=== PATIENT | female | born 1985 | race Caucasian/White ===

== ENCOUNTER 2017-10-18 15:40 | Emergency (ER) | payer OTHER, SELFPAY | END 2017-10-18 16:22 | disposition home or self-care (01) | LOC: ERS 15:40 | DX: N63.0 Unspecified lump in unspecified breast (principal); F41.9 Anxiety disorder, unspecified | CPT/HCPCS: 99283 ==

== ENCOUNTER 2017-12-12 20:28 | Emergency (ER) | payer SELFPAY ==
--- NOTE | 2017-12-12 21:48 | RAD ---
LEFT HAND THREE VIEWS: 12/12/17 HISTORY: Left hand injury. FINDINGS: Impacted fracture of the volar portion of the head of the proximal phalanx middle finger with minimal volar displacement. No significant intra-articular distraction. Surrounding soft tissue swelling. IMPRESSION: Intra-articular fracture proximal phalanx left middle finger. POS: [facility]
[2017-12-12] MEDS ORDERED: HYDROcodone/Acetaminophen 10/325 mg Tablet ONE (22:32)
== END 2017-12-12 22:50 | disposition home or self-care (01) ==
LOC: ERS 20:28
DX: S62.623A Displaced fracture of middle phalanx of left middle finger, initial encounter for closed fracture (principal); M24.442 Recurrent dislocation, left hand; F41.9 Anxiety disorder, unspecified; W55.32XA Struck by other hoof stock, initial encounter
CPT/HCPCS: Q4049

== ENCOUNTER 2022-12-24 18:27 | Inpatient (IN) | payer OTHER ==
[2022-12-24] MEDS ORDERED: Ketorolac Tromethamine 30 MG/ML VIAL ONE (19:07)
[2022-12-24] MEDS ORDERED: cefTRIAXone (ROCEPHIN) 2 GM VIAL ONE (19:07)
[2022-12-24 19:08] LABS: #Monocytes 1.3 thou/uL (0.11-0.59); #Neutrophils 9.9 thou/uL (1.40-6.50); %Basophils 0.2 % (0.0-1.0); %Eosinophils 0.1 % (0.0-10.0); %Lymphocytes 11.3 % (21.0-51.0); %Monocytes 10.3 % (0.0-10.0); %Neutrophils 77.6 % (42.0-75.0); Hematocrit 34.1 % (36.0-47.0); Mean Corpuscular HGB CONC 35.2 g/dL (32.0-36.0); Mean Corpuscular Hemoglobin 31.6 pg (27.0-31.0); Mean Corpuscular Volume 89.7 fl (78.0-98.0); Mean Platelet Volume 9.8 fL (7.4-10.4); Platelet Count 200 10x3/uL (130-400); RBC Distribution Width 11.3 % (11.5-14.5); White Blood Cell (WBC) Count 12.7 10x3/uL (4.8-10.8)
[2022-12-24] MEDS ORDERED: Sodium Chloride 0.9% 100 ML ONE ×2 (19:08→22:22)
[2022-12-24 19:17] LABS: Bacteria/HPF 2+ HPF (None Seen); Bilirubin Negative (Negative); Blood, Urine 1+ (Negative); CAUTI Indications for Culture Alt mental st,lethar; Clarity Turbid (Clear); Glucose, Urine (Dipstick) Normal (Negative); Ketone, Urine Negative (Negative); Leukocyte 500 Leu/uL (Negative); Nitrite Negative (Negative); Protein, Urine (Dipstick) 50 mg/dL (Neg-Trace); Renal Epithelial 0-3 HPF (None Seen); Specific Gravity, Urine 1.022 (1.002-1.036); WBC/HPF Greater than 50 HPF (0-3); pH, Urine 5.5 (5.0-9.0)
[2022-12-24 19:23] LABS: Transitional Epithelial 0-3 HPF (None Seen)
[2022-12-24 19:24] LABS: Urine Culture Reflex Yes Yes
[2022-12-24 19:32] LABS: ALT (SGPT) 45 U/L (8-55); AST (SGOT) 32 U/L (5-34); Albumin 3.6 g/dL (3.5-5.0); Alkaline Phosphatase 66 U/L (40-110); Anion Gap 11 mmol/L (10-20); BUN (Urea Nitrogen) 4 mg/dL (7.0-18.7); Bilirubin, Total 0.6 mg/dL (0.2-1.2); Calc. Creatinine Clearance 0 mL/min (70-130); Calcium 7.9 mg/dL (7.8-10.44); Carbon Dioxide 19 mmol/L (22-29); Chloride 107 mmol/L (98-107); Estimated GFR 116; Globulin 2.2 g/dL (2.4-3.5); Glucose 114 mg/dL (70-105); Potassium 3.4 mmol/L (3.5-5.1); Protein, Total 5.8 g/dL (6.0-8.3); Sodium 134 mmol/L (136-145)
[2022-12-24] MEDS ORDERED: Morphine 4 MG/ML VIAL ONE (20:12)
[2022-12-24] MEDS ORDERED: Ondansetron PF 4 MG/2 ML Vial ONE (20:12)
[2022-12-24] MEDS ORDERED: Iopamidol 0 ML ONE (21:59)
[2022-12-24] MEDS ORDERED: Midazolam HCl 2 mg/2 ml Vial ONE ×2 (22:12→22:13)
[2022-12-24] MEDS ORDERED: fentaNYL 50 mcg/mL 1 mL Vial ONE (22:13)
[2022-12-24] MEDS ORDERED: Piperacillin/Tazobactam 3.375 GM VIAL ONE (22:21)
[2022-12-24] MEDS ORDERED: Acetaminophen 325 MG TAB PO PRN (22:28)
[2022-12-24] MEDS ORDERED: Acetaminophen 650 MG Suppository PR PRN (22:28)
[2022-12-24] MEDS ORDERED: Ondansetron PF 4 MG/2 ML Vial IVP PRN (22:28)
[2022-12-24] MEDS ORDERED: Ondansetron ODT 4 MG TAB PO PRN (22:28)
[2022-12-24] MEDS ORDERED: PHENYLEPHRINE-NS 100 MCG/ML 10 ML SYRINGE ONE (22:41)
[2022-12-24] MEDS ORDERED: PROPOFOL 200 MG/20 ML VIAL ONE (22:41)
[2022-12-24] MEDS ORDERED: Lidocaine 1% PF 5 ML VIAL ONE (22:41)
[2022-12-24] MEDS ORDERED: Bisacodyl 10 MG SUPP PR PRN (22:46)
[2022-12-24] MEDS ORDERED: Oxybutynin 5 MG TAB PO PRN (22:46)
[2022-12-24] MEDS ORDERED: diphenhydrAMINE 50 MG/ML VIAL IVP PRN (22:46)
[2022-12-24] MEDS ORDERED: Mag-Al 1200 mg/1200 mg/30 ML UDCUP PO PRN (22:46)
[2022-12-24] MEDS ORDERED: Promethazine HCl 25 MG/ML VIAL IM PRN (23:13)
[2022-12-24] MEDS ORDERED: Ondansetron HCl/PF 4 MG/2 ML Vial IVP PRN (23:13)
[2022-12-25] MEDS: Morphine 2 MG/ML VIAL SLOW IVP PRN ×2 (00:25→21:18)
[2022-12-25] MEDS: Sodium Chloride 0.9% 1,000 ML IV SCH ×3 (00:26→15:10)
[2022-12-25 00:31] VITALS: BMI 25.5
[2022-12-25] MEDS: HYDROcodone/Acetaminophen 5/325 mg Tablet PO PRN ×4 (00:59→14:28)
[2022-12-25] MEDS: Piperacillin/Tazobactam 3.375 GM in Sodium Chloride 0.9% 100 ML IVPB SCH ×3 (01:58→18:06)
[2022-12-25 06:32] LABS: #Eosinphils 0.1 thou/uL (0.0-0.7); #Monocytes 2.2 thou/uL (0.11-0.59); #Neutrophils 7.5 thou/uL (1.40-6.50); %Basophils 0.2 % (0.0-1.0); %Eosinophils 0.4 % (0.0-10.0); %Lymphocytes 18.2 % (21.0-51.0); %Monocytes 18.2 % (0.0-10.0); %Neutrophils 62.5 % (42.0-75.0); Hemoglobin 11.8 g/dL (12.0-16.0); Mean Corpuscular HGB CONC 33.7 g/dL (32.0-36.0); Mean Platelet Volume 9.8 fL (7.4-10.4); Platelet Count 175 10x3/uL (130-400); RBC Distribution Width 11.6 % (11.5-14.5); Red Blood Cell (RBC) Count 3.69 mill/uL (4.20-5.40)
[2022-12-25 06:33] LABS: Mean Corpuscular Volume 94.9 fl (78.0-98.0)
[2022-12-25 06:52] LABS: Anion Gap 10 mmol/L (10-20); BUN (Urea Nitrogen) 6 mg/dL (7.0-18.7); Calc. Creatinine Clearance 138 mL/min (70-130); Calcium 7.9 mg/dL (7.8-10.44); Carbon Dioxide 20 mmol/L (22-29); Chloride 111 mmol/L (98-107); Estimated GFR 114; Glucose 90 mg/dL (70-105); Potassium 3.4 mmol/L (3.5-5.1); Sodium 138 mmol/L (136-145)
[2022-12-25] MEDS ORDERED: Electrolyte Replacement Protocol 1 EACH FS ONE (07:49)
[2022-12-25] MEDS ORDERED: Electrolyte Replacement Protocol FS PRN (08:00)
[2022-12-25] MEDS ORDERED: Potassium Chloride 20 MEQ in Premix 1 BAG IVPB SCH (08:00)
[2022-12-25] MEDS: Docusate 100 MG CAP PO SCH ×2 (08:35→21:00)
[2022-12-25] MEDS: Famotidine/PF 20 mg/2ml Vial SLOW IVP SCH ×2 (08:35→21:20)
[2022-12-25] MEDS ORDERED: Potassium Chloride 20 MEQ TAB PO SCH (09:15)
[2022-12-26] MEDS: HYDROcodone/Acetaminophen 5/325 mg Tablet PO PRN ×4 (01:27→22:01)
[2022-12-26] MEDS: Piperacillin/Tazobactam 3.375 GM in Sodium Chloride 0.9% 100 ML IVPB SCH ×3 (01:28→19:34)
[2022-12-26 05:47] LABS: #Eosinphils 0.1 thou/uL (0.0-0.7); #Monocytes 1.1 thou/uL (0.11-0.59); #Neutrophils 4.1 thou/uL (1.40-6.50); %Basophils 0.4 % (0.0-1.0); %Eosinophils 0.7 % (0.0-10.0); %Lymphocytes 25.3 % (21.0-51.0); %Monocytes 15.9 % (0.0-10.0); %Neutrophils 57.3 % (42.0-75.0); Hematocrit 31.6 % (36.0-47.0); Hemoglobin 10.8 g/dL (12.0-16.0); Mean Corpuscular HGB CONC 34.2 g/dL (32.0-36.0); Mean Corpuscular Hemoglobin 31.6 pg (27.0-31.0); Mean Corpuscular Volume 92.4 fl (78.0-98.0); Mean Platelet Volume 9.8 fL (7.4-10.4); Platelet Count 194 10x3/uL (130-400); RBC Distribution Width 11.5 % (11.5-14.5); Red Blood Cell (RBC) Count 3.42 mill/uL (4.20-5.40); White Blood Cell (WBC) Count 7.2 10x3/uL (4.8-10.8)
[2022-12-26 06:14] LABS: Anion Gap 11 mmol/L (10-20); BUN (Urea Nitrogen) 4 mg/dL (7.0-18.7); Calc. Creatinine Clearance 129 mL/min (70-130); Calcium 8.4 mg/dL (7.8-10.44); Carbon Dioxide 23 mmol/L (22-29); Chloride 107 mmol/L (98-107); Estimated GFR 105; Glucose 109 mg/dL (70-105); Potassium 3.8 mmol/L (3.5-5.1); Sodium 137 mmol/L (136-145)
[2022-12-26] MEDS: Sodium Chloride 0.9% 1,000 ML IV SCH ×3 (08:10→17:36)
[2022-12-26] MEDS: Docusate 100 MG CAP PO SCH ×2 (08:11→22:03)
[2022-12-26] MEDS: Famotidine/PF 20 mg/2ml Vial SLOW IVP SCH ×2 (09:09→22:03)
[2022-12-26] MEDS: Morphine 2 MG/ML VIAL SLOW IVP PRN (19:34)
[2022-12-27] MEDS: Sodium Chloride 0.9% 1,000 ML IV SCH ×2 (02:15→08:35)
[2022-12-27] MEDS: Piperacillin/Tazobactam 3.375 GM in Sodium Chloride 0.9% 100 ML IVPB SCH ×2 (02:16→10:03)
[2022-12-27] MEDS: Morphine 2 MG/ML VIAL SLOW IVP PRN (04:43)
[2022-12-27 07:46] VITALS: BP 111/77; TEMP 97.7
[2022-12-27] MEDS: Docusate 100 MG CAP PO SCH (08:32)
[2022-12-27] MEDS: HYDROcodone/Acetaminophen 5/325 mg Tablet PO PRN (08:32)
[2022-12-27] MEDS: Famotidine/PF 20 mg/2ml Vial SLOW IVP SCH (10:53)
[2022-12-28] MEDS ORDERED: FLU VACC QS2023-24(6MOS UP)/PF 60 MCG/0.5 ML SYRINGE IM ONE (09:00)
== END 2022-12-27 14:31 | disposition home or self-care (01) | DRG 854 ==
LOC: ERS 18:27 → SDC/OP 22:43 → CCU 23:00 → MSONC 12-25 14:06
PROVIDERS: ADMIT Student in an Organized Health Care Education/Training Program; ATTEND Internal Medicine
PROC: 0T738DZ Dilation of Right Kidney Pelvis with Intraluminal Device, Via Natural or Artificial Opening Endoscopic (ICD-10-PCS; principal; 2022-12-24)
PROC: 3E03329 Introduction of Other Anti-infective into Peripheral Vein, Percutaneous Approach (ICD-10-PCS; 2022-12-24)
DX: A41.51 Sepsis due to Escherichia coli [E. coli] (principal); E87.1 Hypo-osmolality and hyponatremia; N12 Tubulo-interstitial nephritis, not specified as acute or chronic; N13.2 Hydronephrosis with renal and ureteral calculous obstruction; M19.90 Unspecified osteoarthritis, unspecified site; F41.9 Anxiety disorder, unspecified; N32.89 Other specified disorders of bladder; F10.90 Alcohol use, unspecified, uncomplicated; R31.9 Hematuria, unspecified; E87.6 Hypokalemia; I95.9 Hypotension, unspecified; Z79.899 Other long term (current) drug therapy; Z98.890 Other specified postprocedural states; Z87.891 Personal history of nicotine dependence
CPT/HCPCS: 36415; 71045; 74176; 74420; 80048; 80053; 81001; 83605; 84702; 85025; 87040; 87077; 87086; 87186; 93005; C2617; J0696; J1650; J1885; J2250; J2270; J2272; J2405; J2543; J2704; J3010; J3480; J3490; J7050; Q9967; S0028

== ENCOUNTER 2023-01-10 06:18 | Day surgery (SDC) | payer SELFPAY ==
[2023-01-09 10:00] VITALS: BMI 23.5
[2023-01-10] MEDS ORDERED: Lidocaine 1% MPF 2 ML VIAL ONE (06:33)
[2023-01-10] MEDS ORDERED: cefTRIAXone (ROCEPHIN) 2 GM VIAL ONE (06:34)
[2023-01-10] MEDS ORDERED: Sodium Chloride 0.9% 100 ML ONE (06:34)
[2023-01-10] MEDS ORDERED: Midazolam HCl 2 mg/2 ml Vial ONE (06:54)
[2023-01-10] MEDS ORDERED: Fentanyl 250 MCG/5 ML VIAL ONE (06:55)
[2023-01-10] MEDS ORDERED: Ondansetron PF 4 MG/2 ML Vial ONE (07:07)
[2023-01-10] MEDS ORDERED: PROPOFOL 20 ML ONE (07:07)
[2023-01-10] MEDS ORDERED: Dexamethasone 4 mg/ml Vial ONE (07:07)
[2023-01-10] MEDS ORDERED: Lidocaine 2% PF 5 ML VIAL ONE (07:07)
[2023-01-10] MEDS ORDERED: Rocuronium Bromide 50 MG/5 ML VIAL ONE (07:23)
[2023-01-10] MEDS ORDERED: Lidocaine 1% PF 5 ML VIAL ONE (07:34)
[2023-01-10] MEDS ORDERED: PROPOFOL 200 MG/20 ML VIAL ONE (07:34)
[2023-01-10] MEDS ORDERED: Iopamidol 15 ML ONE (08:01)
[2023-01-10] MEDS ORDERED: fentaNYL 50 mcg/mL 1 mL Vial ONE (08:15)
[2023-01-10] MEDS ORDERED: Oxybutynin 5 MG TAB ONE (08:25)
[2023-01-10] MEDS ORDERED: Phenazopyridine HCl 100 MG TAB ONE (08:25)
[2023-01-10] MEDS ORDERED: HYDROcodone/Acetaminophen 5/325 mg Tablet ONE (09:12)
== END 2023-01-10 09:50 | disposition home or self-care (01) ==
LOC: SDC 06:18
PROVIDERS: ATTEND Urology
PROC: 0T768DZ Dilation of Right Ureter with Intraluminal Device, Via Natural or Artificial Opening Endoscopic (ICD-10-PCS; principal; 2023-01-10)
PROC: 0TC68ZZ Extirpation of Matter from Right Ureter, Via Natural or Artificial Opening Endoscopic (ICD-10-PCS; principal; 2023-01-10)
DX: N20.1 Calculus of ureter (principal); N30.00 Acute cystitis without hematuria; N39.41 Urge incontinence; K59.00 Constipation, unspecified; M19.90 Unspecified osteoarthritis, unspecified site; F41.9 Anxiety disorder, unspecified; Z98.890 Other specified postprocedural states; Z87.891 Personal history of nicotine dependence; Z79.899 Other long term (current) drug therapy
CPT/HCPCS: 74018; 74420; C1747; C1769; C2617; J0696; J1100; J2001; J2250; J2405; J2704; J3010; J3490; Q9967

== ENCOUNTER 2024-12-17 18:02 | Emergency (ER) | payer MEDICAID, OTHER ==
[2024-12-17 19:07] LABS: Pregnancy Test - Urine (BHCG) Negative (Negative); Pregu Control Background? CLEAR/WHITE (CLR/WHITE); Pregu Control Bar Appear? YES (CONTROL BAR)
[2024-12-17 19:13] LABS: Bacteria/HPF None Seen HPF (None Seen); CAUTI Indications for Culture Pelvic or flank pain; Glucose, Urine (Dipstick) Normal (Negative); Leukocyte 75 Leu/uL (Negative); Protein, Urine (Dipstick) 20 mg/dL (Neg-Trace); RBC/HPF 0-3 HPF (0-3); Specific Gravity, Urine 1.027 (1.002-1.036)
[2024-12-17 19:32] LABS: Urine Culture Reflex No No
== END 2024-12-17 19:59 | disposition home or self-care (01) ==
LOC: ERS 18:02
DX: J02.9 Acute pharyngitis, unspecified (principal); N39.0 Urinary tract infection, site not specified
CPT/HCPCS: 81001; 81025; 87081; 87430; 99283